=== PATIENT | male | born 1985 | race Hispanic/Latino ===

== ENCOUNTER 2019-06-30 14:11 | Emergency (ER) | payer SELFPAY ==
[2019-06-30 14:15] VITALS: BP 126/77
--- NOTE | 2019-06-30 14:59 | Emergency Department Report ---
Chief Complaint: Extremity Injury, Upper Stated Complaint: RIGHT ARM PAIN Time Seen by Provider: 06/30/19 14:38 - HPI History of Present Illness: Patient is a 33-year-old male presents emergency room with complaints of right hand and right wrist pain that began a month ago. He states that it has increased over the last week. He states that occasionally he feels tingling and numbness. He denies any weakness and is able to fully move to the wrist hand and digits. He is right-hand dominant. He states that he works at a [employer] and constantly does repetitive movements. He states he has been working some 16-hour shifts and thinks that this aggravated it more. He denies any past medical history. He states he has an allergy to got diclofenac. Vitals are normal on exam: Non toxic appearing, no acute distress atraumatic, normocephalic normal appearance of the eyes, EOMI, no periorbital edema or ecchymosis moist mucus membranes Tenderness to palpation over the right lateral wrist, right thenar eminence, no snuffbox tenderness to palpation of the right, full range of motion of the right hand, right wrist, right digits, discomfort with flexion of the right wrist, no edema, no erythema, no increased warmth, neurovascularly intact, brisk cap refill, 2+ distal pulses skin is warm, dry, intact History and examination consistent with carpal tunnel given that patient constantly does repetitive movements Discussed supportive care and symptomatic treatment with patient Will refer patient to an orthopedic doctor in a primary care clinic for further evaluation and management Patient has had no acute traumatic injury Medical screening examination performed and there is no threat to life or limb at this time Patient states that he really just needs an excuse for work to be off for a week in order to rest his wrist - Exam Vital Signs: Vital Signs 06/30/19 14:14 Temperature 97.6 F Pulse Rate 82 Blood Pressure 126/77 O2 Sat by Pulse 98 Oximetry MSE screening note: Focused history and physical exam performed. ED Disposition for MSE Clinical Impression: Right wrist pain, Right hand pain Disposition: Z-07 MED SCREENING EXAM-LEFT Is pt being admited?: No Does the pt Need Aspirin: No Condition: Stable Instructions: Carpal Tunnel Syndrome (ED) Additional Instructions: May take Tylenol as needed for pain. May ice for 15 minutes at a time. Please rest the wrist and avoid repetitive movements. Please use a wrist wrap while doing movements but remove before bedtime. Follow-up with an orthopedic doctor. Follow-up with a primary care doctor. Return to the emergency room for any new or worsening symptoms. Referrals: TANVIR RIOS MD [Staff Physician] - 3-5 Days [facility]Provider [facility]] - 3-5 Days LUX CALIXTO MD [Staff Physician] - 3-5 Days [facility] [Outside] - 3-5 Days [facility] [Outside] - 3-5 Days [facility] [Provider Group] - 3-5 Days Forms: Work/School Release Form(ED) Time of Disposition: 14:58 Print Language: [place]
== END 2019-06-30 15:06 | disposition left against medical advice (07) ==
LOC: ED 14:11
DX: M25.531 Pain in right wrist (principal); M79.641 Pain in right hand; R20.2 Paresthesia of skin; E11.9 Type 2 diabetes mellitus without complications; Z98.890 Other specified postprocedural states; Z88.8 Allergy status to other drugs, medicaments and biological substances
CPT/HCPCS: 99282

== ENCOUNTER 2021-04-25 11:42 | Emergency (ER) | payer OTHER ==
[2021-04-25] MEDS ORDERED: SODIUM CHLORIDE 0.9% 1000 ML 1,000 ML IV ONE (12:41)
--- NOTE | 2021-04-25 12:54 | Emergency Department Report ---
ED General Adult HPI - General Chief complaint: Hyperglycemia Stated complaint: HIGH BLOOD SUGAR Time Seen by Provider: 04/25/21 12:41 Source: patient Mode of arrival: Ambulatory Limitations: No Limitations - History of Present Illness Initial comments: Patient is a 35-year-old male presents emergency room with complaints of hyperglycemia. He states it has been increasing over the last 3 weeks but has worsened in the last 4 days and he began feeling sick. He has associated decreased appetite, nausea, vomiting, sweats, lightheadedness. He denies any cough, diarrhea, fever, shortness of breath. he states he also gets a numbness/tingling sensation in his bilateral feet. he denies any ulcers, breaks in the skin, drainage. Patient states he takes glipizide and Metformin for his diabetes. He states 2 years ago they increased his doses of his medication. He states he is not currently seeing a primary care doctor. Past medical history of hypertension. Allergy to NSAIDs. - Related Data Allergies Allergy/AdvReac Type Severity Reaction Status Date / Time diclofenac Allergy Anaphylaxis Verified 04/25/21 12:36 NSAIDS (Non-Steroidal AdvReac Anaphylaxis Verified 06/30/19 14:16 Anti-Inflamma ED Review of Systems ROS: Stated complaint: HIGH BLOOD SUGAR Other details as noted in HPI Comment: All other systems reviewed and negative ED Past Medical Hx - Past Medical History Hx Hypertension: Yes Hx Diabetes: Yes - Surgical History Additional Surgical History: ACL REPAIR MANISCULAR RECONSTRUCTION - Social History Smoking Status: Never Smoker Substance Use Type: None ED Physical Exam - General Limitations: No Limitations General appearance: alert, in no apparent distress - Head Head exam: Present: atraumatic, normocephalic - Eye Eye exam: Present: normal appearance - ENT ENT exam: Present: mucous membranes moist - Respiratory Respiratory exam: Present: normal lung sounds bilaterally. Absent: respiratory distress, wheezes, rales, rhonchi, stridor, chest wall tenderness, accessory muscle use, decreased breath sounds, prolonged expiratory - Cardiovascular Cardiovascular Exam: Present: normal rhythm, tachycardia - Extremities Exam Extremities exam: Present: other (no signs of ulceration or infection to the feet) - Neurological Exam Neurological exam: Present: alert, oriented X3 - Psychiatric Psychiatric exam: Present: normal affect, normal mood - Skin Skin exam: Present: warm, dry, intact ED Course Vital Signs 04/25/21 04/25/21 04/25/21 12:35 13:01 13:33 Temperature 99.5 F 98.6 F Pulse Rate 111 H 105 H Respiratory 20 26 H 17 Rate Blood Pressure 168/105 Blood Pressure 159/100 [Right] O2 Sat by Pulse 98 98 98 Oximetry 04/25/21 04/25/21 14:02 15:15 Temperature Pulse Rate 98 H 96 H Respiratory 18 16 Rate Blood Pressure Blood Pressure 157/88 152/98 [Right] O2 Sat by Pulse 97 98 Oximetry ED Medical Decision Making - Lab Data Result diagrams: 04/25/21 13:08 04/25/21 13:08 Lab Results 04/25/21 04/25/21 04/25/21 Range/Units 12:31 13:01 13:08 WBC 7.0 (4.5-11.0) K/mm3 RBC 5.47 H (3.65-5.03) M/mm3 Hgb 16.0 H (11.8-15.2) gm/dl Hct 47.4 H (35.5-45.6) % MCV 87 (84-94) fl MCH 29 (28-32) pg MCHC 34 (32-34) % RDW 12.8 L (13.2-15.2) % Plt Count 273 (140-440) K/mm3 Lymph % (Auto) 25.2 (13.4-35.0) % [place] % (Auto) 9.3 H (0.0-7.3) % Eos % (Auto) 2.8 (0.0-4.3) % Baso % (Auto) 0.5 (0.0-1.8) % Lymph # (Auto) 1.8 (1.2-5.4) K/mm3 [place] # (Auto) 0.7 (0.0-0.8) K/mm3 Eos # (Auto) 0.2 (0.0-0.4) K/mm3 Baso # (Auto) 0.0 (0.0-0.1) K/mm3 Seg Neutrophils % 62.2 (40.0-70.0) % Seg Neutrophils # 4.3 (1.8-7.7) K/mm3 VBG pH (7.320-7.420) Sodium (137-145) mmol/L Potassium (3.6-5.0) mmol/L Chloride (98-107) mmol/L Carbon Dioxide (22-30) mmol/L Anion Gap mmol/L BUN (9-20) mg/dL Creatinine (0.8-1.3) mg/dL Estimated GFR ml/min BUN/Creatinine Ratio % Glucose (75-100) mg/dL POC Glucose 372 H 329 H (70-105) mg/dL Calcium (8.4-10.2) mg/dL Total Bilirubin (0.1-1.2) mg/dL AST (5-40) units/L ALT (7-56) units/L Alkaline Phosphatase (35-129) units/L Total Protein (6.3-8.2) g/dL Albumin (3.9-5) g/dL Albumin/Globulin Ratio % Urine Color (Yellow) Urine Turbidity (Clear) Urine pH (5.0-7.0) Ur Specific [place] (1.003-1.030) Urine Protein (Negative) mg/dL Urine Glucose (UA) (Negative) mg/dL Urine Ketones (Negative) mg/dL Urine Blood (Negative) Urine Nitrite (Negative) Urine Bilirubin (Negative) Urine Urobilinogen (<2.0) mg/dL Ur Leukocyte Esterase (Negative) Urine WBC (Auto) (0.0-6.0) /HPF Urine RBC (Auto) (0.0-6.0) /HPF 04/25/21 04/25/21 04/25/21 Range/Units 13:08 13:08 14:57 WBC (4.5-11.0) K/mm3 RBC (3.65-5.03) M/mm3 Hgb (11.8-15.2) gm/dl Hct (35.5-45.6) % MCV (84-94) fl MCH (28-32) pg MCHC (32-34) % RDW (13.2-15.2) % Plt Count (140-440) K/mm3 Lymph % (Auto) (13.4-35.0) % [place] % (Auto) (0.0-7.3) % Eos % (Auto) (0.0-4.3) % Baso % (Auto) (0.0-1.8) % Lymph # (Auto) (1.2-5.4) K/mm3 [place] # (Auto) (0.0-0.8) K/mm3 Eos # (Auto) (0.0-0.4) K/mm3 Baso # (Auto) (0.0-0.1) K/mm3 Seg Neutrophils % (40.0-70.0) % Seg Neutrophils # (1.8-7.7) K/mm3 VBG pH 7.346 (7.320-7.420) Sodium 136 L (137-145) mmol/L Potassium 3.9 (3.6-5.0) mmol/L Chloride 102.5 (98-107) mmol/L Carbon Dioxide 21 L (22-30) mmol/L Anion Gap 16 mmol/L BUN 11 (9-20) mg/dL Creatinine 0.7 L (0.8-1.3) mg/dL Estimated GFR > 60 ml/min BUN/Creatinine Ratio 16 % Glucose 352 H (75-100) mg/dL POC Glucose 281 H (70-105) mg/dL Calcium 8.9 (8.4-10.2) mg/dL Total Bilirubin 1.00 (0.1-1.2) mg/dL AST 20 (5-40) units/L ALT 30 (7-56) units/L Alkaline Phosphatase 73 (35-129) units/L Total Protein 6.9 (6.3-8.2) g/dL Albumin 4.4 (3.9-5) g/dL Albumin/Globulin Ratio 1.8 % Urine Color (Yellow) Urine Turbidity (Clear) Urine pH (5.0-7.0) Ur Specific [place] (1.003-1.030) Urine Protein (Negative) mg/dL Urine Glucose (UA) (Negative) mg/dL Urine Ketones (Negative) mg/dL Urine Blood (Negative) Urine Nitrite (Negative) Urine Bilirubin (Negative) Urine Urobilinogen (<2.0) mg/dL Ur Leukocyte Esterase (Negative) Urine WBC (Auto) (0.0-6.0) /HPF Urine RBC (Auto) (0.0-6.0) /HPF 04/25/21 Range/Units Unknown WBC (4.5-11.0) K/mm3 RBC (3.65-5.03) M/mm3 Hgb (11.8-15.2) gm/dl Hct (35.5-45.6) % MCV (84-94) fl MCH (28-32) pg MCHC (32-34) % RDW (13.2-15.2) % Plt Count (140-440) K/mm3 Lymph % (Auto) (13.4-35.0) % [place] % (Auto) (0.0-7.3) % Eos % (Auto) (0.0-4.3) % Baso % (Auto) (0.0-1.8) % Lymph # (Auto) (1.2-5.4) K/mm3 [place] # (Auto) (0.0-0.8) K/mm3 Eos # (Auto) (0.0-0.4) K/mm3 Baso # (Auto) (0.0-0.1) K/mm3 Seg Neutrophils % (40.0-70.0) % Seg Neutrophils # (1.8-7.7) K/mm3 VBG pH (7.320-7.420) Sodium (137-145) mmol/L Potassium (3.6-5.0) mmol/L Chloride (98-107) mmol/L Carbon Dioxide (22-30) mmol/L Anion Gap mmol/L BUN (9-20) mg/dL Creatinine (0.8-1.3) mg/dL Estimated GFR ml/min BUN/Creatinine Ratio % Glucose (75-100) mg/dL POC Glucose (70-105) mg/dL Calcium (8.4-10.2) mg/dL Total Bilirubin (0.1-1.2) mg/dL AST (5-40) units/L ALT (7-56) units/L Alkaline Phosphatase (35-129) units/L Total Protein (6.3-8.2) g/dL Albumin (3.9-5) g/dL Albumin/Globulin Ratio % Urine Color Yellow (Yellow) Urine Turbidity Clear (Clear) Urine pH 5.0 (5.0-7.0) Ur Specific [place] 1.037 H (1.003-1.030) Urine Protein <15 mg/dl (Negative) mg/dL Urine Glucose (UA) >=500 (Negative) mg/dL Urine Ketones 20 (Negative) mg/dL Urine Blood Sm (Negative) Urine Nitrite Neg (Negative) Urine Bilirubin Neg (Negative) Urine Urobilinogen < 2.0 (<2.0) mg/dL Ur Leukocyte Esterase Neg (Negative) Urine WBC (Auto) < 1.0 (0.0-6.0) /HPF Urine RBC (Auto) < 1.0 (0.0-6.0) /HPF Vital Signs 04/25/21 04/25/21 04/25/21 12:35 13:01 13:33 Temperature 99.5 F 98.6 F Pulse Rate 111 H 105 H Respiratory 20 26 H 17 Rate Blood Pressure 168/105 Blood Pressure 159/100 [Right] O2 Sat by Pulse 98 98 98 Oximetry 04/25/21 14:02 Temperature Pulse Rate 98 H Respiratory 18 Rate Blood Pressure Blood Pressure 157/88 [Right] O2 Sat by Pulse 97 Oximetry - Medical Decision Making Patient is a 35-year-old male presents emergency room with complaints of hyperglycemia. He states it has been increasing over the last 3 weeks but has worsened in the last 4 days and he began feeling sick. He has associated decreased appetite, nausea, vomiting, sweats, lightheadedness. He denies any cough, diarrhea, fever, shortness of breath. he states he also gets a numbness/tingling sensation in his bilateral feet. he denies any ulcers, breaks in the skin, drainage. Patient states he takes glipizide and Metformin for his diabetes. He states 2 years ago they increased his doses of his medication. He states he is not currently seeing a primary care doctor. Past medical history of hypertension. Allergy to NSAIDs. Initial vitals with tachycardia which improved upon repeat. Patient has no signs of ulceration or infection to the feet. Blood glucose is 352, no signs of DKA based on laboratory studies. Patient given 1 L IV fluids and 6 units of IV insulin with improvement of blood glucose to 281. Patient needs outpatient primary care follow-up for better glycemic control and likely initiation of insulin. Discussed case with Dr. Berrios, ER attending who recommended outpatient primary care follow-up regarding patient's hyperglycemia. Advised patient please continue to take your medication as prescribed by your doctor. Increase your water intake. Follow-up with a primary care provider for better glycemic control and likely initiation of insulin. Please eat a low sugar/low carbohydrate diet. Return to emergency room for any new or worsening symptoms. Critical care attestation.: If time is entered above; I have spent that time in minutes in the direct care of this critically ill patient, excluding procedure time. ED Disposition Clinical Impression: Hyperglycemia Disposition: 01 HOME / SELF CARE / HOMELESS Is pt being admited?: No Does the pt Need Aspirin: No Condition: Stable Instructions: Preventing Type 2 Diabetes Mellitus, Hyperglycemia, [id number] Additional Instructions: please continue to take your medication as prescribed by your doctor. Increase your water intake. Follow-up with a primary care provider for better glycemic control and likely initiation of insulin. Please eat a low sugar/low carbohydrate diet. Return to emergency room for any new or worsening symptoms. Referrals: PRIMARY MD SAGRARIO [Primary Care Provider] - 3-5 Days LUX CALIXTO MD [Staff Physician] - 3-5 Days [facility] [Provider Group] - 3-5 Days [facility] [Outside] - 3-5 Days [facility], [LAB/CONTRACT] - 3-5 Days [facility] [place] [Outside] - 3-5 Days Time of Disposition: 15:11 Print Language: [place]
--- NOTE | 2021-04-25 13:12 | Emergency Department Report ---
ED General Adult HPI - General Chief complaint: Hyperglycemia Stated complaint: HIGH BLOOD SUGAR Time Seen by Provider: 04/25/21 12:41 Source: patient Mode of arrival: Ambulatory Limitations: No Limitations - History of Present Illness Initial comments: 35-year-old male with a past medical history of obesity and "prediabetes" presents to the hospital complaining of elevated blood sugar. Patient is likely a diabetic and not a "prediabetic" since he has been on medications for diabetes for last 7 years. Patient taking Metformin 500 mg twice daily and glipizide unknown dose daily. Patient has run out of his glipizide for the last 1 to 2 months. The last several weeks he has been feeling "bad" and therefore has been checking his sugar. Approximate 2 to 3 days ago patient states he had a syncopal episode and his sugar was 700 at that time. Patient is having paresthesias and tingling to lower extremity, intermittent headache, intermittent blurred vision. He denies nausea or vomiting. His sugar upon arrival is 372. Patient states he thinks he needs insulin. He has been attempting to follow-up as an outpatient. Blood pressure also elevated upon arrival but patient denies a diagnosis of hypertension. Severity scale (0 -10): 0 - Related Data Allergies Allergy/AdvReac Type Severity Reaction Status Date / Time diclofenac Allergy Anaphylaxis Verified 04/25/21 12:36 NSAIDS (Non-Steroidal AdvReac Anaphylaxis Verified 06/30/19 14:16 Anti-Inflamma ED Review of Systems ROS: Stated complaint: HIGH BLOOD SUGAR Other details as noted in HPI Comment: All other systems reviewed and negative ED Past Medical Hx - Past Medical History Hx Hypertension: Yes Hx Diabetes: Yes - Surgical History Additional Surgical History: ACL REPAIR MANISCULAR RECONSTRUCTION - Social History Smoking Status: Never Smoker Substance Use Type: None ED Physical Exam - General Limitations: No Limitations General appearance: alert, in no apparent distress - Other Other exam information: General: No acute distress Head: Atraumatic Eyes: normal appearance ENT: Moist mucous membranes Neck: Normal appearance, no midline tenderness Chest: Clear to auscultation bilaterally CV: Mild tachycardia Abdomen: Soft, normal bowel sounds, nontender, nondistended, no rebound or guarding Back: Normal inspection Extremity: Normal inspection, full range of motion Neuro: Alert O x 3, no facial asymmetry, speech clear, no gross motor sensory deficit Psych: Appropriate behavior Skin: No rash ED Course Vital Signs 04/25/21 04/25/21 12:35 13:01 Temperature 99.5 F 98.6 F Pulse Rate 111 H 105 H Respiratory 20 26 H Rate Blood Pressure 168/105 Blood Pressure 159/100 [Right] O2 Sat by Pulse 98 98 Oximetry Critical Care Time: No Critical care attestation.: If time is entered above; I have spent that time in minutes in the direct care of this critically ill patient, excluding procedure time. ED Disposition Condition: Stable
[2021-04-25 13:43] LABS: Basophils % (Auto) 0.5 % (0.0-1.8); Eosinophils # (Auto) 0.2 K/mm3 (0.0-0.4); Eosinophils % (Auto) 2.8 % (0.0-4.3); Hematocrit 47.4 % (35.5-45.6); Lymphocytes # (Auto) 1.8 K/mm3 (1.2-5.4); Lymphocytes % (Auto) 25.2 % (13.4-35.0); Mean Corpuscular HGB Conc 34 % (32-34); Mean Corpuscular Volume 87 fl (84-94); Monocytes # (Auto) 0.7 K/mm3 (0.0-0.8); Monocytes % (Auto) 9.3 % (0.0-7.3); Platelet Count 273 K/mm3 (140-440); Red Blood Count 5.47 M/mm3 (3.65-5.03); Red Cell Distribution Width 12.8 % (13.2-15.2)
[2021-04-25 13:44] LABS: Alanine Aminotransferase 30 units/L (7-56); Albumin 4.4 g/dL (3.9-5); Blood Urea Nitrogen 11 mg/dL (9-20); Calcium 8.9 mg/dL (8.4-10.2); Hemolysis Index 10
[2021-04-25 13:49] LABS: BUN/Creatinine Ratio 16
[2021-04-25] MEDS ORDERED: INSULIN REGULAR, HUMAN 100 UNITS/1 ML IV ONE (13:49)
[2021-04-25 14:37] LABS: Bilirubin,Urine NEG (Negative); Blood,Urine SM (Negative); Color,Urine Yellow (Yellow); Protein,Urine <15 mg/dL mg/dL (Negative); Urobilinogen,Urine < 2.0 mg/dL (<2.0)
[2021-04-25 15:03] LABS: RBC,Urine < 1.0 /HPF (0.0-6.0); WBC,Urine < 1.0 /HPF (0.0-6.0)
[2021-04-25 15:22] VITALS: BP 152/98
== END 2021-04-25 15:22 | disposition home or self-care (01) ==
LOC: ED 11:42
DX: E11.65 Type 2 diabetes mellitus with hyperglycemia (principal); Z88.6 Allergy status to analgesic agent; I10 Essential (primary) hypertension
CPT/HCPCS: 36415; 80053; 81001; 82805; 82962; 85025; 96361; 96374; 99283; J7030; Q0162; Q9967; J1815